=== PATIENT | female | born 1980 | race Caucasian/White ===

== ENCOUNTER 2019-08-14 23:41 | Emergency (ER) | payer BC, SELFPAY ==
[2019-08-14 23:42] VITALS: BP 151/63; PULSE 116; RESP 16; TEMP 37.4; O2SAT 96; BMI 45.6
--- NOTE | 2019-08-15 00:13 | CT_ITS ---
PROCEDURE: CT ABDOMEN PELVIS WO CON CLINICAL INDICATION: pelvic pain Left upper quadrant and pelvic pain, history kidney stones COMPARISON: No exams were available for comparison TECHNIQUE: Axial images obtained with sagittal and coronal reformats. All CT scans at the facility use one or more dose reduction, viz: automated exposure control, ma/kV adjustment per patient size (including targeted exams where dose is matched to indication, i.e. head), or iterative reconstruction technique. FINDINGS: LOWER THORAX: There are atelectatic changes in the left lung base. There is an old left 7th rib fracture slightly offset ABDOMEN & PELVIS: Post cholecystectomy changes. The liver, spleen, adrenal glands, pancreas, and kidneys have an unremarkable unenhanced appearance. No renal or ureteral calculi. No evidence of appendicitis. No intestinal obstruction or free air. There is focal soft tissue thickening involving the colon at the junction of the descending and sigmoid colon in the left lower quadrant with stranding of the pericolic fat and thickened diverticula consistent with diverticulitis without abscess or free air. No pelvic mass or abnormal fluid collection. No acute bony findings. Small umbilical hernia containing fat noted IMPRESSION: Acute diverticulitis of the junction of the descending and sigmoid colon without evidence of abscess or perforation Dictated by: Dallas Mclain MD 08/15/2019 07:55 Electronically signed by Dallas Mclain MD in [place] 08/15/2019 07:55
[2019-08-15 00:23] LABS: Microscopic, Urine URINE MICROSCOPIC (MICROSCOPIC)
[2019-08-15 00:25] LABS: Basophils # 0.1 K/mm3 (0-0.2); Basophils % 0.5 % (0.1-2.0); Eosinophils # 0.9 K/mm3 (0.0-0.4); Eosinophils % 4.8 % (0.1-12.0); Hemoglobin 15.7 g/dL (12.2-16.2); Lymphocytes # 2.4 K/mm3 (0.7-4.5); Lymphocytes % 12.3 % (10-50); Mean Corpuscular HGB Conc 34.2 g/dL (31.8-35.4); Mean Corpuscular Hemoglobin 31.2 pg (27.0-31.2); Mean Corpuscular Volume 91.3 fl (81-99); Mean Platelet Volume 6.9 fl (7.4-10.4); Monocytes # 0.9 K/mm3 (0.1-1.0); Monocytes % 4.5 % (1.7-9.3); Neutrophils % 77.9 % (37.0-80.0); Platelet Count 376 K/mm3 (142-424); Red Blood Count 5.04 M/mm3 (4.20-5.40); White Blood Count 19.3 K/mm3 (4.8-10.8)
[2019-08-15 00:27] LABS: Appearance,Urine SL CLOUDY (Clear); Bilirubin,Urine Negative (Negative); Blood, Urine Negative (Negative); Color,Urine YELLOW (Yellow); Glucose,Urine (UA) Negative (Negative); Ketones,Urine Negative (Negative); Leukocyte Esterase,Urine Negative (Negative); Nitrate,Urine Negative (Negative); Protein,Urine Negative (Negative); Specific Gravity, Urine 1.025 (1.005-1.030); Urobilinogen,Urine 0.2 EU/dl (0.2)
[2019-08-15 00:30] LABS: Urine Pregnancy, HCG Qual. Negative (Negative)
[2019-08-15 00:31] LABS: MANUAL DIFFERENTIAL MANUAL DIFFERENTIAL (MANUAL DIFF)
[2019-08-15 00:31] LABS: Squamous Epithelial Cell,Urine 20-50 #/hpf (0-5); WBC,Urine Occasional #/hpf (0-3)
[2019-08-15 00:37] LABS: Eosinophils % 4 % (0-3); Lymphocytes % 12 % (10-50); Monocytes % 2 % (2-9); Neutrophils % 77 % (42-76); Platelet Estimate Normal; RBC Morphology Normal; Total Cells Counted 100
[2019-08-15 00:42] VITALS: BP 137/89; PULSE 83; RESP 18; O2SAT 98
[2019-08-15 00:42] LABS: Alanine Aminotransferase 28 U/L (12-78); Albumin Level 4.1 g/dl (3.5-5.0); Albumin/Globulin Ratio 1.1 (1.1-1.8); Alkaline Phosphatase 127 U/L (38-126); Aspartate Amino Transferase 34 U/L (14-36); Bilirubin,Total 1.5 mg/dl (0.2-1.3); Blood Urea Nitrogen 10 mg/dl (7-17); Calcium 9.6 mg/dl (8.4-10.2); Carbon Dioxide 26 mmol/L (22.0-30.0); Chloride 98 mmol/L (98-107); Creatinine Clearance Estimated 110 mL/min (50-200); Estimated Glomerular Filt Rate 94 ml/min (>60); GFR (African American) 113 ML/MIN (>60); Globulin 3.7 g/dL (1.3-3.2); Glucose 166 mg/dl (74-100); Sodium 135 mmol/L (136-145); Total Protein,Serum 7.8 g/dl (6.3-8.2)
--- NOTE | 2019-08-15 01:11 | [facility].EDGENADL ---
ED Disposition Clinical Impression: Acute diverticulitis Ribs, multiple fractures Qualifiers: Encounter type: initial encounter Fracture type: closed Laterality: left Qualified Code(s): S22.42XA - Multiple fractures of ribs, left side, initial encounter for closed fracture Disposition: Home, Self-Care Condition on Discharge: Good Instructions: DI for Diverticulitis Additional Instructions: call pcp in am for follo wup Prescriptions: metroNIDAZOLE [Flagyl 500mg Tablet] 500 mg PO Q8H #30 tab Prescription Printed levoFLOXacin [Levaquin 500mg tab] 500 mg PO DAILY #7 tab Prescription Printed Referrals: Sarah Camacho [Primary Care Provider] - - Critical Care Critical Care Time: No Attestation: On 08/14/19, the high probability of a clinically significant, sudden or life threatening deterioration of the following system(s) required my full and direct attention, intervention and personal management. The time I documented below is in addition to time spent performing reported procedures but includes the following listed in this critical care notation. Medical Decision Making - Medical Records Medical records reviewed: Yes: I reviewed the patient's medical records. - Ming Inquiry Pt receiving controlled substance: No Vital Signs: 08/14/19 23:42 Temperature 99.4 F Temperature Source Oral Pulse Rate [Left Radial] 116 H Respiratory Rate 16 Blood Pressure [Right Arm] 151/63 H Blood Pressure Mean [Right Arm] 92 Blood Pressure Source [Right Arm] Automatic Cuff Blood Pressure Position [Right Arm] Sitting 02 Sat by Pulse Oximetry 96 Oxygen Delivery Method Room Air - Lab Data Lab results reviewed: Yes: I reviewed the patient's lab results. Lab Results 08/15/19 00:01: Urine Color Yellow, Urine Appearance Sl cloudy, Urine pH 6.0, Ur Specific Counselor 1.025, Urine Protein Negative, Urine Glucose (UA) Negative, Urine Ketones Negative, Urine Blood Negative, Urine Nitrate Negative, Urine Bilirubin Negative, Urine Urobilinogen 0.2, Ur Leukocyte Esterase Negative, Urine WBC Occasional, Ur Squamous Epith Cells 20-50 08/15/19 00:01: Urine HCG, Qual Negative 08/15/19 00:10: WBC 19.3 H, RBC 5.04, Hgb 15.7, Hct 46.0, MCV 91.3, MCH 31.2, MCHC 34.2, RDW 14.0, Plt Count 376, MPV 6.9 L, Neut % (Auto) 77.9, Lymph % (Auto) 12.3, [place] % (Auto) 4.5, Eos % (Auto) 4.8, Baso % (Auto) 0.5, Neut # (Auto) 15.0 H, Lymph # (Auto) 2.4, [place] # (Auto) 0.9, Eos # (Auto) 0.9 H, Baso # (Auto) 0.1, Total Counted 100, Neutrophils % (Manual) 77 H, Band Neutrophils % 5.0, Lymphocytes % (Manual) 12, Monocytes % (Manual) 2, Eosinophils % (Manual) 4 H, Platelet Estimate Normal, RBC Morphology Normal 08/15/19 00:10: Sodium 135 L, Potassium 4.0, Chloride 98, Carbon Dioxide 26, Anion Gap 15.0, BUN 10, Creatinine 0.70, Estimated Creat Clear 110, Estimated GFR 94, Est GFR ( Amer) 113, Glucose 166 H, Calcium 9.6, Total Bilirubin 1.5 H, AST 34, ALT 28, Alkaline Phosphatase 127 H, Total Protein 7.8, Albumin 4.1, Globulin 3.7 H, Albumin/Globulin Ratio 1.1 Result diagrams: 08/15/19 00:10 08/15/19 00:10 Orders (Tests/Meds): ED MEDICATIONS Generic Name Dose Route Start Last Admin Trade Name Freq PRN Reason Stop Dose Admin Sodium Chloride 1,000 mls @ 999 mls/hr 08/15/19 01:00 08/15/19 00:54 Sod Chlor 0.9% 1000ml Bag IV 08/15/19 02:00 999 mls/hr .Q1H1M APRIL Administration Discontinued Medications Generic Name Dose Route Start Last Admin Trade Name Freq PRN Reason Stop Dose Admin Ketorolac Tromethamine 30 mg 08/15/19 00:53 08/15/19 00:54 Toradol 30mg/Ml Vial IV 08/15/19 00:54 30 mg ONCE ONE Administration Ondansetron HCl 4 mg 08/15/19 00:53 08/15/19 00:54 Zofran 4mg/2ml Vial IV 08/15/19 00:54 4 mg ONCE ONE Administration ORDERS Category Date Time Status CT abdomen pelvis wo con Stat Cat Scan 08/15/19 00:13 Taken - CT Data CT Scan: Abdomen, Pelvis Time Received: 01:[address] Reviewed: Juan
[2019-08-15 01:28] VITALS: BP 131/85; PULSE 81; RESP 17; TEMP 36.8; O2SAT 97
== END 2019-08-15 01:31 | disposition home or self-care (01) ==
PROVIDERS: Emergency Provider Emergency Medicine; PCP Nurse Practitioner Family
DX: K57.92 Diverticulitis of intestine, part unspecified, without perforation or abscess without bleeding (principal); S22.32XA Fracture of one rib, left side, initial encounter for closed fracture; F10.10 Alcohol abuse, uncomplicated; R05 Cough
CPT/HCPCS: 74176; 80053; 81001; 81025; 85007; 85025; 96365; 96375; 99283; J2405